=== PATIENT | male | born 1950 | race Caucasian/White ===

== ENCOUNTER → 2016-10-04 | Outpatient (CLI) | payer BC ==
[~2016-10-04] MED LIST: AMBI5TAB PO
== END ==
LOC: M LAB 08:12
PROVIDERS: ATTEND Radiology Radiation Oncology
DX: C61 Malignant neoplasm of prostate (principal)

== ENCOUNTER → 2016-10-06 | Outpatient (CLI) | payer BC | LOC: M ONCR 11:10 | PROVIDERS: ATTEND Radiology Radiation Oncology | DX: C61 Malignant neoplasm of prostate (principal) ==

== ENCOUNTER → 2017-04-02 | Outpatient (CLI) | payer BC | LOC: M WUC 11:41 | PROVIDERS: ATTEND Physician Assistant | DX: M10.071 Idiopathic gout, right ankle and foot (principal) ==

== ENCOUNTER → 2017-07-07 | Outpatient (CLI) | payer BC, OTHER | LOC: M SMT 14:37 | PROVIDERS: ATTEND Nurse Practitioner Women's Health | DX: Z85.46 Personal history of malignant neoplasm of prostate (principal) ==

== ENCOUNTER → 2017-08-22 | Outpatient (CLI) | payer OTHER | LOC: M SMT 08:29 | PROVIDERS: ATTEND Nurse Practitioner Women's Health | DX: Z85.46 Personal history of malignant neoplasm of prostate (principal) ==

== ENCOUNTER → 2017-10-03 | Outpatient (CLI) | payer OTHER ==
[2017-10-03 15:07] LABS: HEMATOCRIT 38.8 % (42.0-52.0); HEMOGLOBIN 13.7 g/dl (14.0-18.0); MEAN CORPUSCULAR HEMOGLOBIN 31.7 pg (27.0-33.0); MEAN CORPUSCULAR HGB CONC 35.3 g/dl (32.0-36.5); MEAN CORPUSCULAR VOLUME 89.8 fl (80.0-96.0); PLATELET COUNT, AUTOMATED 334 10^3/uL (150-450); RED BLOOD COUNT 4.32 10^6/uL (4.30-6.10); RED CELL DISTRIBUTION WIDTH 11.6 % (11.5-14.5); WHITE BLOOD COUNT 8.4 10^3/uL (4.0-10.0)
[2017-10-03 15:17] LABS: ALBUMIN 3.8 GM/DL (3.2-5.2); ALBUMIN/GLOBULIN RATIO 1.27 (1.00-1.93); ALKALINE PHOSPHATASE 61 U/L (45-117); ALT/SGPT 31 U/L (12-78); ANION GAP 9 MEQ/L (8-16); AST/SGOT 18 U/L (7-37); BILIRUBIN,TOTAL 0.8 MG/DL (0.2-1.0); BLOOD UREA NITROGEN 21 MG/DL (7-18); CARBON DIOXIDE LEVEL 26 MEQ/L (21-32); CHLORIDE LEVEL 104 MEQ/L (98-107); GLOMERULAR FILTRATION RATE > 60.0 (>49); GLUCOSE, FASTING 135 MG/DL (80-110); SODIUM LEVEL 139 MEQ/L (136-145); TOTAL PROTEIN 6.8 GM/DL (6.4-8.2)
== END ==
LOC: M LAB 13:35
DX: I25.10 Atherosclerotic heart disease of native coronary artery without angina pectoris (principal); I10 Essential (primary) hypertension; I25.2 Old myocardial infarction
CPT/HCPCS: 80053

== ENCOUNTER 2017-10-10 10:28 | Day surgery (SDC) | payer OTHER ==
[2017-10-10] MEDS ORDERED: fentaNYL 100 MCG/2 ML INJECTION (J3010) As Ordered ×4 (10:55→12:31)
[2017-10-10] MEDS ORDERED: MIDAZOLAM INJ 2 MG/2 ML VIAL (J2250) As Ordered ×2 (10:55)
[2017-10-10] MEDS: LR 1,000 ML IV ×2 (11:18)
[2017-10-10] MEDS ORDERED: dexameTHASONE 4 MG/ML 1ML VIAL (J1100) As Ordered ×2 (12:27)
[2017-10-10] MEDS ORDERED: ROCURONIUM BROMIDE 50 MG/5 ML VIAL As Ordered ×2 (12:27)
[2017-10-10] MEDS ORDERED: PROPOFOL 200 MG/20 ML VIAL As Ordered ×2 (12:27)
[2017-10-10] MEDS ORDERED: LIDOCAINE 2% INJ 100 MG/5 ML SDV (FOR ANES.) As Ordered ×2 (12:27)
[2017-10-10] MEDS ORDERED: KETOROLAC 60 MG/2 ML VIAL (J1885) As Ordered ×2 (12:28)
[2017-10-10] MEDS ORDERED: ONDANSETRON 4MG/2ML VIAL (J2405) As Ordered ×2 (12:28)
[2017-10-10] MEDS: CEFAZOLIN SOD 1 GM in APPROPRIATE DILUENT 1 EA IV (12:39)
[2017-10-10] MEDS: BUPIVACAINE HCL 0.25% 30 ML VIAL As Ordered ×2 (12:40)
[2017-10-10] MEDS ORDERED: HYDROmorphone HCL 1 MG/ML SYRINGE (J1170) IV ×2 (14:15)
[2017-10-10] MEDS ORDERED: fentaNYL 100 MCG/2 ML INJECTION (J3010) IV ×2 (14:15)
[2017-10-10] MEDS ORDERED: LR 1,000 ML IV ×4 (14:15→14:30)
[2017-10-10] MEDS ORDERED: ONDANSETRON 4MG/2ML VIAL (J2405) IV ×4 (14:15→14:30)
[2017-10-10] MEDS ORDERED: MORPHINE 2 MG/ML 1ML SYRINGE IV ×2 (14:30)
[2017-10-10] MEDS ORDERED: NORCO, ANEXSIA 5/325MG TABLET (HYDROcodone/ACETAMINOPHEN) PO ×2 (14:30)
[2017-10-10] MEDS: PERCOCET 5MG/325MG TAB PO ×2 (15:12)
== END 2017-10-10 16:35 | disposition home or self-care (01) ==
LOC: M SDC 10:28
DX: K40.90 Unilateral inguinal hernia, without obstruction or gangrene, not specified as recurrent (principal); I11.9 Hypertensive heart disease without heart failure; I25.10 Atherosclerotic heart disease of native coronary artery without angina pectoris; I25.2 Old myocardial infarction; E78.00 Pure hypercholesterolemia, unspecified; K21.9 Gastro-esophageal reflux disease without esophagitis; Z85.46 Personal history of malignant neoplasm of prostate; Z92.3 Personal history of irradiation; Z79.899 Other long term (current) drug therapy; Z87.891 Personal history of nicotine dependence
CPT/HCPCS: 49650

== ENCOUNTER → 2018-02-14 | Outpatient (CLI) | payer OTHER ==
[2018-02-14 13:21] LABS: PROSTATIC SPECIFIC AG MONITOR 1.37 NG/ML (< 4.0)
== END ==
LOC: M SMT 09:05
DX: Z85.46 Personal history of malignant neoplasm of prostate (principal)
CPT/HCPCS: 84153

== ENCOUNTER → 2018-05-12 | Outpatient (CLI) | payer OTHER ==
[2018-05-12 12:23] LABS: URIC ACID 7.7 MG/DL (3.5-7.2)
== END ==
LOC: M WUC 08:23
DX: M17.12 Unilateral primary osteoarthritis, left knee (principal); M25.462 Effusion, left knee; M10.062 Idiopathic gout, left knee
CPT/HCPCS: 84550

== ENCOUNTER → 2018-05-15 | Outpatient (CLI) | payer OTHER ==
[2018-05-15 10:59] LABS: PROSTATIC SPECIFIC AG MONITOR 1.24 NG/ML (< 4.0)
== END ==
LOC: M SMT 07:59
DX: C61 Malignant neoplasm of prostate (principal)
CPT/HCPCS: 84153

== ENCOUNTER → 2018-07-11 | Outpatient (CLI) | payer OTHER ==
[2018-07-11 13:36] LABS: PROSTATIC SPECIFIC AG MONITOR 2.47 NG/ML (< 4.0)
== END ==
LOC: M SMT 08:00
DX: C61 Malignant neoplasm of prostate (principal)
CPT/HCPCS: 84153

== ENCOUNTER → 2018-08-14 | Outpatient (CLI) | payer OTHER ==
[2018-08-14 13:46] LABS: PROSTATIC SPECIFIC AG MONITOR 1.4 NG/ML (< 4.0)
== END ==
LOC: M SMT 08:23
DX: C61 Malignant neoplasm of prostate (principal)
CPT/HCPCS: 84153

== ENCOUNTER → 2018-08-24 | Outpatient (REF) | payer OTHER | LOC: M LAB REF 16:29 | DX: L08.9 Local infection of the skin and subcutaneous tissue, unspecified (principal) | CPT/HCPCS: 87070 ==

== ENCOUNTER 2018-10-09 06:27 | Day surgery (SDC) | payer MEDICARE, OTHER ==
[~2018-10-09] VITALS: Ht 182.9 cm; Wt 88.5 kg
[~2018-10-09 06:27] MED LIST changes: +AMLO5TAB6 PO; +ATOR1TAB21 PO; +LISI20TA PO; +METO25TA4 PO; +NS 1,000 ML IV ONE; +OMEP20CA3 PO; +ZYLO300T6
[2018-10-09] MEDS ORDERED: PRED5PAK PO (07:10)
[2018-10-09] MEDS ORDERED: PROPOFOL 500 MG/50 ML VIAL As Ordered ONE (08:10)
[2018-10-09] MEDS ORDERED: LIDOCAINE 2% INJ 100 MG/5 ML SDV (FOR ANES.) As Ordered ONE (08:10)
--- NOTE | 2018-10-09 08:24 | ROOR ---
Patient Name: Andrea Kaur Procedure Date: 10/09/2018 8:03 AM Date of : 1950 Age: 68 Room: [facility] Gender: Male Note Status: Finalized Procedure: Colonoscopy Indications: High risk colon cancer surveillance: Personal history of colonic polyps, Last colonoscopy: February 2013 Providers: Andrea LYNN MD Referring MD: SARAH OWENS MD Requesting Provider: Medicines: Monitored Anesthesia Care Complications: No immediate complications. Procedure: Pre-Anesthesia Assessment: - The heart rate, respiratory rate, oxygen saturations, blood pressure, adequacy of pulmonary ventilation, and response to care were monitored throughout the procedure. The Colonoscope was introduced through the anus and advanced to the terminal ileum, with identification of the appendiceal orifice and IC valve. The colonoscopy was performed without difficulty. The patient tolerated the procedure well. The quality of the bowel preparation was good. Findings: Mild mucosal changes were found in the distal rectum. The entire examined colon appeared normal on direct and retroflexion views. 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 - The entire examined colon is normal on direct and retroflexion views. - No specimens collected. Recommendation: - Repeat colonoscopy in 10 years for screening purposes. Andrea Lynn MD Andrea LYNN MD 10/09/2018 8:23:58 AM This report has been signed electronically. Number of Addenda: 0 Note Initiated On: 10/09/2018 8:03 AM Estimated Blood Loss: Estimated blood loss: none.
[2018-10-09 08:40] VITALS: BP 171/101
== END 2018-10-09 08:51 | disposition home or self-care (01) ==
LOC: M OPP 06:27
PROVIDERS: ATTEND Internal Medicine Gastroenterology
DX: Z86.010 Personal history of colon polyps (principal); I11.9 Hypertensive heart disease without heart failure; C61 Malignant neoplasm of prostate; C44.509 Unspecified malignant neoplasm of skin of other part of trunk; E78.00 Pure hypercholesterolemia, unspecified; Z79.899 Other long term (current) drug therapy

== ENCOUNTER → 2018-10-25 | Outpatient (CLI) | payer MEDICARE ==
[~2018-10-25] MED LIST changes: -NS 1,000 ML IV ONE; +PRED5PAK PO
--- NOTE | 2018-10-25 09:56 | REP ---
Clinical: Polyarthritis. Technique: AP, lateral, bilateral oblique views of the right and left wrist. Findings: Minimal age-related changes include very subtle subchondral sclerosis involving the carpal bones and radial articular surface along with minimal radiocarpal joint space narrowing. No further osteoarthritic or inflammatory arthritic changes are appreciated. Impression: Minimal symmetric age-related changes. Electronically Signed by Willie Fierro MD 10/25/2018 09:48 A
--- NOTE | 2018-10-25 09:56 | REP ---
Clinical: Polyarthritis. Technique: AP, lateral, bilateral oblique views of the right and left hand. Findings: Minimal symmetric age-related changes are appreciated. Findings include very subtle subchondral sclerosis and trace joint space narrowing at the interphalangeal joints. No osteophytosis, subchondral cystic changes, or periarticular erosive changes. No significant swelling. No acute fracture dislocation. Impression: Minimal age-related osteoarthritic changes. Electronically Signed by Willie Fierro MD 10/25/2018 09:48 A
--- NOTE | 2018-10-25 09:57 | REP ---
Clinical: Polyarthritis. Technique: Internal rotation, external rotation, and Y view of the right shoulder. Findings: Age-related cortical irregularity at the acromioclavicular joint is appreciated with a small inferior spur. The subacromial space is normal. No periarticular calcifications or loose bodies are identified. The humeral head is normal. The glenoid rim demonstrates a very subtle age-related blunting. No acute fracture dislocation. Impression: Mild arthritic changes at the acromioclavicular joint. Electronically Signed by Willie Fierro MD 10/25/2018 09:49 A
--- NOTE | 2018-10-25 10:03 | REP ---
Clinical: Polyarthritis. Technique: Single AP weightbearing view of the right and left knee. Findings: Moderate bilateral arthritic degenerative changes (left greater than right) noted. Findings include subchondral sclerosis along the tibial plateaus along with subtle early spurring/osteophyte formation and medial joint space narrowing which is most pronounced at the left knee. Left-sided chondrocalcinosis is also identified. Impression: Moderate bilateral osteoarthritic degenerative changes (left greater than right). Electronically Signed by Willie Fierro MD 10/25/2018 09:54 A
[2018-10-25 13:58] LABS: BASO # 0.1 10^3/uL (0.0-0.2); BASO % 0.7 % (0.0-1.0); EOS # 0.2 10^3/uL (0.0-0.50); EOS % 2.2 % (0.0-3.0); HEMATOCRIT 41.7 % (42.0-52.0); LYMPH % 12.7 % (24.0-44.0); MEAN CORPUSCULAR HEMOGLOBIN 30.8 pg (27.0-33.0); MEAN CORPUSCULAR HGB CONC 33.6 g/dl (32.0-36.5); MEAN CORPUSCULAR VOLUME 91.6 fl (80.0-96.0); MONO # 0.9 10^3/uL (0.0-0.8); MONO % 11.2 % (0.0-5.0); NEUTROPHILS # 5.9 10^3/uL (1.8-7.7); PLATELET COUNT, AUTOMATED 302 10^3/uL (150-450); RED BLOOD COUNT 4.55 10^6/uL (4.30-6.10); WHITE BLOOD COUNT 8.1 10^3/uL (4.0-10.0)
[2018-10-25 14:06] LABS: ALBUMIN 3.8 GM/DL (3.2-5.2); ALT/SGPT 31 U/L (12-78); BILIRUBIN,TOTAL 0.8 MG/DL (0.2-1.0); BLOOD UREA NITROGEN 17 MG/DL (7-18); C REACTIVE PROTEIN QUANTITATIV 1.11 MG/DL (0.00-0.30); CALCIUM LEVEL 8.6 MG/DL (8.8-10.2); CARBON DIOXIDE LEVEL 29 MEQ/L (21-32); CHLORIDE LEVEL 103 MEQ/L (98-107); CREATININE FOR GFR 0.79 MG/DL (0.70-1.30); GLOMERULAR FILTRATION RATE > 60.0 (>49); GLUCOSE, FASTING 110 MG/DL (70-100); POTASSIUM SERUM 4.5 MEQ/L (3.5-5.1); RHEUMATOID FACTOR QUANT < 10.0 IU/ML (<15.0); SODIUM LEVEL 139 MEQ/L (136-145); TOTAL PROTEIN 6.6 GM/DL (6.4-8.2)
[2018-10-25 14:22] LABS: ERYTHROCYTE SEDIMENTATION RATE 41 mm/hr (0-20)
[2018-10-28 00:07] LABS: ANA (HEP2) Negative (.); CYCLIC CITRULLINATED PEPTIDE 15 units (0-19)
== END ==
LOC: M SMT 09:10
PROVIDERS: ATTEND Internal Medicine Rheumatology
DX: M13.111 Monoarthritis, not elsewhere classified, right shoulder (principal); M13.131 Monoarthritis, not elsewhere classified, right wrist; M13.132 Monoarthritis, not elsewhere classified, left wrist; M13.141 Monoarthritis, not elsewhere classified, right hand; M13.142 Monoarthritis, not elsewhere classified, left hand; C61 Malignant neoplasm of prostate; I10 Essential (primary) hypertension; M79.89 Other specified soft tissue disorders
CPT/HCPCS: 36415; 73030; 73110; 73130; 73565; 76882; 80053; 84153; 84550; 85025; 85652; 86038; 86140; 86200; 86431; G0463

== ENCOUNTER → 2018-10-25 | Outpatient (CLI) | payer MEDICARE | LOC: M SMT 09:07 | PROVIDERS: ATTEND Urology | DX: C61 Malignant neoplasm of prostate (principal) ==

== ENCOUNTER → 2018-11-03 | Outpatient (REF) | payer MEDICARE ==
[2018-11-03 18:31] LABS: CRYSTALS, BODY FLUID NONE SEEN (NONE SEEN); SOURCE, BODY FLUID RT KNEE; SOURCE, BODY FLUID CRYSTALS RT KNEE; SYNOVIAL FLUID COLOR YELLOW (YELLOW)
== END ==
LOC: M LAB REF 18:13
PROVIDERS: ATTEND Internal Medicine Rheumatology
DX: M25.461 Effusion, right knee (principal)
CPT/HCPCS: 20611; 87070; 87205; 88108; 88313; 89051; 89060; G0463; J1040

== ENCOUNTER → 2019-01-30 | Outpatient (REF) | payer MEDICARE ==
[2019-01-30 10:45] LABS: ALBUMIN 3.7 GM/DL (3.2-5.2); ALT/SGPT 34 U/L (12-78); BLOOD UREA NITROGEN 16 MG/DL (7-18); CALCIUM LEVEL 8.6 MG/DL (8.8-10.2); CARBON DIOXIDE LEVEL 28 MEQ/L (21-32); CHLORIDE LEVEL 105 MEQ/L (98-107); GLOMERULAR FILTRATION RATE > 60.0 (>49); GLUCOSE, FASTING 102 MG/DL (70-100); SODIUM LEVEL 138 MEQ/L (136-145); TOTAL PROTEIN 6.8 GM/DL (6.4-8.2)
[2019-01-30 10:57] LABS: BASO # 0.1 10^3/uL (0.0-0.2); BASO % 1.1 % (0.0-1.0); EOS # 0.4 10^3/uL (0.0-0.50); EOS % 6.4 % (0.0-3.0); HEMATOCRIT 41.1 % (42.0-52.0); HEMOGLOBIN 14.1 g/dl (13.5-17.5); LYMPH # 1.1 10^3/uL (1.5-4.5); LYMPH % 17.2 % (24.0-44.0); MEAN CORPUSCULAR HEMOGLOBIN 31.5 pg (27.0-33.0); MEAN CORPUSCULAR HGB CONC 34.3 g/dl (32.0-36.5); MEAN CORPUSCULAR VOLUME 91.7 fl (80.0-96.0); MONO # 0.8 10^3/uL (0.0-0.8); MONO % 12.4 % (0.0-5.0); NEUTROPHILS # 3.9 10^3/uL (1.8-7.7); NEUTROPHILS % 62.6 % (36.0-66.0); PLATELET COUNT, AUTOMATED 320 10^3/uL (150-450); RED BLOOD COUNT 4.48 10^6/uL (4.30-6.10); WHITE BLOOD COUNT 6.3 10^3/uL (4.0-10.0)
== END ==
LOC: M SFHCPLAZ 08:14
PROVIDERS: ATTEND Internal Medicine Rheumatology
DX: M13.0 Polyarthritis, unspecified (principal); M11.89 Other specified crystal arthropathies, multiple sites
CPT/HCPCS: 36415; 80053; 85025; G0463

== ENCOUNTER → 2019-05-02 | Outpatient (CLI) | payer MEDICARE ==
[~2019-05-02] MED LIST changes: -LISI20TA PO; +LISI20TA19 PO; +OMEP1CAP73 PO; -OMEP20CA3 PO
== END ==
LOC: M SMT 08:11
PROVIDERS: ATTEND Urology
DX: C61 Malignant neoplasm of prostate (principal)

== ENCOUNTER → 2019-08-10 | Outpatient (CLI) | payer MEDICARE ==
[~2019-08-10] MED LIST changes: -OMEP1CAP73 PO; +OMEP20CA4 PO
[2019-08-10 10:15] LABS: BASO # 0.1 10^3/uL (0.0-0.2); BASO % 0.8 % (0.0-1.0); EOS # 0.4 10^3/uL (0.0-0.5); EOS % 4.7 % (0.0-3.0); HEMATOCRIT 40.5 % (42.0-52.0); HEMOGLOBIN 13.6 g/dl (13.5-17.5); LYMPH # 1.2 10^3/uL (1.5-5.0); LYMPH % 16.1 % (24.0-44.0); MEAN CORPUSCULAR HEMOGLOBIN 31.6 pg (27.0-33.0); MEAN CORPUSCULAR HGB CONC 33.6 g/dl (32.0-36.5); MEAN CORPUSCULAR VOLUME 94.2 fl (80.0-96.0); MONO # 0.9 10^3/uL (0.0-0.8); MONO % 11.6 % (0.0-5.0); NEUTROPHILS # 5.1 10^3/uL (1.5-8.5); NEUTROPHILS % 66.3 % (36.0-66.0); PLATELET COUNT, AUTOMATED 300 10^3/uL (150-450); WHITE BLOOD COUNT 7.7 10^3/uL (4.0-10.0)
[2019-08-10 10:46] LABS: ALBUMIN 3.6 GM/DL (3.2-5.2); ALT/SGPT 32 U/L (12-78); BLOOD UREA NITROGEN 17 MG/DL (7-18); CALCIUM LEVEL 8.4 MG/DL (8.8-10.2); CARBON DIOXIDE LEVEL 30 MEQ/L (21-32); CHLORIDE LEVEL 103 MEQ/L (98-107); CREATININE FOR GFR 0.89 MG/DL (0.70-1.30); GLOMERULAR FILTRATION RATE > 60.0 (>49); GLUCOSE, FASTING 90 MG/DL (70-100); POTASSIUM SERUM 4.2 MEQ/L (3.5-5.1); SODIUM LEVEL 139 MEQ/L (136-145); TOTAL PROTEIN 6.4 GM/DL (6.4-8.2); URIC ACID 3.6 MG/DL (3.5-7.2)
== END ==
LOC: M SMT 08:59
PROVIDERS: ATTEND Internal Medicine Rheumatology
DX: M11.89 Other specified crystal arthropathies, multiple sites (principal)

== ENCOUNTER → 2019-10-23 | Outpatient (CLI) | payer MEDICARE ==
[~2019-10-23] MED LIST changes: +OMEP1CAP73 PO; -OMEP20CA4 PO
== END ==
LOC: M PLALAB 09:45
PROVIDERS: ATTEND Urology
DX: C61 Malignant neoplasm of prostate (principal)

== ENCOUNTER → 2020-05-02 | Outpatient (REF) | payer MEDICARE ==
[~2020-05-02] MED LIST changes: +AMLO1TAB24 PO; -AMLO5TAB6 PO; -LISI20TA19 PO; +LISI20TA35 PO
== END ==
LOC: M SMT 10:17
PROVIDERS: ATTEND Urology
DX: C61 Malignant neoplasm of prostate (principal); R97.20 Elevated prostate specific antigen [PSA]

== ENCOUNTER → 2020-10-31 | Outpatient (REF) | payer MEDICARE | LOC: M PLALAB 09:10 | PROVIDERS: ATTEND Urology | DX: C61 Malignant neoplasm of prostate (principal); R97.20 Elevated prostate specific antigen [PSA] ==

== ENCOUNTER → 2021-05-20 | Outpatient (CLI) | payer MEDICARE | LOC: M PLALAB 08:38 | PROVIDERS: ATTEND Urology | DX: C61 Malignant neoplasm of prostate (principal) ==

== ENCOUNTER → 2021-11-04 | Outpatient (CLI) | payer MEDICARE | LOC: M PLALAB 13:20 | PROVIDERS: ATTEND Urology | DX: C61 Malignant neoplasm of prostate (principal) ==

== ENCOUNTER → 2021-11-18 | Outpatient (CLI) | payer MEDICARE ==
[~2021-11-18] MED LIST changes: +ISOVUE-300 61% 50ML VIAL As Ordered ONE; +LIDOCAINE 1% MDV 20ML VIAL As Ordered ONE; +methylPREDNISolone SUSP 40MG/ML 1ML VIAL (DEPO MEDROL) As Ordered ONE
== END ==
LOC: M RADPRO 13:50
PROVIDERS: ATTEND Physician Assistant
DX: M16.11 Unilateral primary osteoarthritis, right hip (principal)
CPT/HCPCS: 20610; 77002; J1030; Q9967

== ENCOUNTER → 2022-02-24 | Outpatient (CLI) | payer MEDICARE ==
[~2022-02-24] MED LIST changes: -ISOVUE-300 61% 50ML VIAL As Ordered ONE; -LIDOCAINE 1% MDV 20ML VIAL As Ordered ONE; -methylPREDNISolone SUSP 40MG/ML 1ML VIAL (DEPO MEDROL) As Ordered ONE
[2022-02-24 10:54] LABS: HEMOGLOBIN A1c 5.4 %
[2022-02-24 11:24] LABS: ALBUMIN 3.8 GM/DL (3.2-5.2); ALT/SGPT 35 U/L (12-78); BILIRUBIN,DIRECT 0.2 MG/DL (0.0-0.2); FOLATE 22.2 NG/ML (>5.4); TOTAL PROTEIN 6.8 GM/DL (6.4-8.2); VITAMIN B12 LEVEL 443 PG/ML (247-911)
[2022-02-25 12:08] LABS: ANTINUCLEAR ANTIBODIES DIRECT Negative (Negative)
== END ==
LOC: M PLALAB 09:05
PROVIDERS: ATTEND Physical Medicine & Rehabilitation
DX: M54.16 Radiculopathy, lumbar region (principal); Z79.899 Other long term (current) drug therapy

== ENCOUNTER → 2022-03-25 | Outpatient (CLI) | payer MEDICARE ==
[2022-03-25 11:09] LABS: BLOOD UREA NITROGEN 14 MG/DL (7-18); CREATININE FOR GFR 0.89 MG/DL (0.70-1.30); GLOMERULAR FILTRATION RATE > 60.0 (>49)
== END ==
LOC: M PLALAB 08:45
PROVIDERS: ATTEND Physical Medicine & Rehabilitation
DX: M47.896 Other spondylosis, lumbar region (principal); M51.36 Other intervertebral disc degeneration, lumbar region

== ENCOUNTER → 2022-04-26 | Outpatient (CLI) | payer MEDICARE | LOC: M PLALAB 09:48 | PROVIDERS: ATTEND Physical Medicine & Rehabilitation | DX: M54.16 Radiculopathy, lumbar region (principal) ==

== ENCOUNTER → 2022-04-26 | Outpatient (CLI) | payer MEDICARE | LOC: M PLALAB 09:50 | PROVIDERS: ATTEND Urology | DX: C61 Malignant neoplasm of prostate (principal); M54.16 Radiculopathy, lumbar region ==

== ENCOUNTER → 2022-05-05 | Outpatient (CLI) | payer MEDICARE | LOC: M RAD 09:35 | PROVIDERS: ATTEND Internal Medicine | DX: F17.201 Nicotine dependence, unspecified, in remission (principal) ==

== ENCOUNTER → 2022-05-26 | Outpatient (CLI) | payer MEDICARE | LOC: M PLALAB 14:38 | DX: R77.8 Other specified abnormalities of plasma proteins (principal) ==

== ENCOUNTER → 2022-07-05 | Outpatient (REF) | payer OTHER, MEDICARE ==
[2022-07-05 10:38] LABS: BASO # 0.1 10^3/uL (0.0-0.2); BASO % 1.3 % (0.0-1.0); EOS # 0.4 10^3/uL (0.0-0.5); EOS % 6.8 % (0.0-3.0); HEMATOCRIT 38.7 % (42.0-52.0); LYMPH # 1.1 10^3/uL (1.5-5.0); LYMPH % 20.2 % (24.0-44.0); MEAN CORPUSCULAR HEMOGLOBIN 32.2 pg (27.0-33.0); MEAN CORPUSCULAR HGB CONC 33.6 g/dl (32.0-36.5); MEAN CORPUSCULAR VOLUME 95.8 fl (80.0-96.0); MONO # 0.6 10^3/uL (0.0-0.8); MONO % 11.2 % (2.0-8.0); NEUTROPHILS # 3.3 10^3/uL (1.5-8.5); NEUTROPHILS % 60.1 % (36.0-66.0); PLATELET COUNT, AUTOMATED 293 10^3/uL (150-450); RED BLOOD COUNT 4.04 10^6/uL (4.30-6.10); WHITE BLOOD COUNT 5.6 10^3/uL (4.0-10.0)
[2022-07-05 11:29] LABS: ALBUMIN 3.4 GM/DL (3.2-5.2); C REACTIVE PROTEIN QUANTITATIV < 0.30 MG/DL (0.00-0.30); FERRITIN 327 NG/ML (26-388); IRON (FE) 117 UG/DL (65-175); PERCENT SATURATION 48.1 % (19.7-50.0); TOTAL IRON BINDING CAPACITY 243 UG/DL (250-450)
== END ==
LOC: M PLALAB 10:01
PROVIDERS: ATTEND Orthopaedic Surgery
DX: Z00.00 Encounter for general adult medical examination without abnormal findings (principal)

== ENCOUNTER → 2023-01-07 | Outpatient (CLI) | payer MEDICARE | LOC: M PLALAB 09:26 | PROVIDERS: ATTEND Urology | DX: C61 Malignant neoplasm of prostate (principal) ==

== ENCOUNTER → 2023-07-12 | Outpatient (CLI) | payer MEDICARE | LOC: M PLALAB 14:16 | PROVIDERS: ATTEND Urology | DX: C61 Malignant neoplasm of prostate (principal) ==

== ENCOUNTER → 2023-10-25 | Outpatient (CLI) | payer MEDICARE | LOC: M RAD 09:33 | PROVIDERS: ATTEND Internal Medicine | DX: Z12.2 Encounter for screening for malignant neoplasm of respiratory organs (principal); F17.211 Nicotine dependence, cigarettes, in remission ==

== ENCOUNTER → 2024-02-23 | Outpatient (CLI) | payer MEDICARE | LOC: M PLALAB 08:33 | PROVIDERS: ATTEND Urology | DX: C61 Malignant neoplasm of prostate (principal) ==

== ENCOUNTER → 2024-05-14 | Outpatient (REF) | payer MEDICARE | LOC: M SMT 12:29 | PROVIDERS: ATTEND Urology | DX: R31.0 Gross hematuria (principal) ==

== ENCOUNTER → 2024-05-25 | Outpatient (CLI) | payer MEDICARE ==
[2024-05-25 18:31] LABS: BLOOD UREA NITROGEN 21 MG/DL (9-23); CALCIUM LEVEL 8.6 MG/DL (8.3-10.6); CARBON DIOXIDE LEVEL 28 MMOL/L (20-31); CHLORIDE LEVEL 105 MMOL/L (98-107); CREATININE FOR GFR 0.79 MG/DL (0.70-1.30); GLOMERULAR FILTRATION RATE > 60.0 (>42); GLUCOSE, FASTING 104 MG/DL (74-106); POTASSIUM SERUM 3.9 MMOL/L (3.5-5.1); SODIUM LEVEL 139 MMOL/L (136-145)
== END ==
LOC: M PLALAB 14:45
PROVIDERS: ATTEND Urology
DX: R31.0 Gross hematuria (principal)

== ENCOUNTER → 2024-05-31 | Outpatient (CLI) | payer MEDICARE ==
[~2024-05-31] MED LIST changes: +ISOVUE-370 76% 100ML VIAL As Ordered ONE
== END ==
LOC: M RAD 05-24 14:11
PROVIDERS: ATTEND Urology
DX: R31.0 Gross hematuria (principal); N28.1 Cyst of kidney, acquired; K76.89 Other specified diseases of liver
CPT/HCPCS: 74178; Q9967

== ENCOUNTER → 2024-08-31 | Outpatient (CLI) | payer MEDICARE ==
[~2024-08-31] MED LIST changes: -ISOVUE-370 76% 100ML VIAL As Ordered ONE
[2024-08-31 14:28] LABS: HEMATOCRIT 35.6 % (42.0-52.0); HEMOGLOBIN 12.1 g/dl (13.5-17.5); MEAN CORPUSCULAR HEMOGLOBIN 32.3 pg (27.0-33.0); MEAN CORPUSCULAR VOLUME 94.9 fl (80.0-96.0); RED BLOOD COUNT 3.75 10^6/uL (4.30-6.10)
[2024-08-31 14:42] LABS: PLATELET COUNT, AUTOMATED 84 10^3/uL (150-450)
[2024-08-31 14:54] LABS: ALBUMIN 2.9 G/DL (3.2-5.2); ALKALINE PHOSPHATASE 62 U/L (40-129); ALT/SGPT 38 U/L (7.0-40); AST/SGOT 37 U/L (<34); BILIRUBIN,TOTAL 1.1 MG/DL (0.3-1.2); BLOOD UREA NITROGEN 25 MG/DL (9-23); CARBON DIOXIDE LEVEL 27 MMOL/L (20-31); CHLORIDE LEVEL 101 MMOL/L (98-107); CREATININE FOR GFR 1.02 MG/DL (0.70-1.30); GLOMERULAR FILTRATION RATE > 60.0 (>42); GLUCOSE, FASTING 124 MG/DL (74-106); POTASSIUM SERUM 3.5 MMOL/L (3.5-5.1); SODIUM LEVEL 137 MMOL/L (136-145); TOTAL PROTEIN 6.1 G/DL (5.7-8.2)
[2024-08-31 15:13] LABS: ERYTHROCYTE SEDIMENTATION RATE 53 mm/hr (0-20)
[2024-09-05 14:02] LABS: LYME TOTAL ANTIBODY CIA <= 0.90 Index (<=0.90)
== END ==
LOC: M PLALAB 09:23
PROVIDERS: ATTEND Physician Assistant
DX: R50.9 Fever, unspecified (principal); R53.83 Other fatigue; M13.0 Polyarthritis, unspecified; W57.XXXA Bitten or stung by nonvenomous insect and other nonvenomous arthropods, initial encounter

== ENCOUNTER → 2025-02-11 | Outpatient (CLI) | payer MEDICARE ==
[~2025-02-11] MED LIST changes: -AMBI5TAB PO; +ZOLP-532 PO
== END ==
LOC: M RAD 09:00
PROVIDERS: ATTEND Internal Medicine
DX: J43.9 Emphysema, unspecified (principal); J47.9 Bronchiectasis, uncomplicated; J98.4 Other disorders of lung